=== PATIENT | male | born 1945 | race Caucasian/White ===

== ENCOUNTER 2017-08-22 06:41 | Inpatient (IN) | payer OTHER ==
[~2017-08-22] VITALS: Ht 190.5 cm; Wt 139.3 kg
[~2017-08-22 06:41] MED LIST: AMARYL4 MG PO; ASPIRIN EC81 M1 PO; GLUCOPHAGE500 MG PO; LISINOPRIL10 MG PO; LOSARTAN POTASSIUM; LOVASTATIN 20 M20 MG PO; MEDROLDOSEPACK PO; MOBIC15 MG PO; MULTIVITAMINS PO; NAPROSYN500 MG PO; PIOGLITAZONE15 MG PO; SKELAXIN 800 M800 M1 PO
[2017-08-22 06:47] VITALS: BP 140/104
[2017-08-22 07:16] LABS: HEMATOCRIT 38.2 % (42.0-52.0); HEMOGLOBIN 13.1 gm/dL (14.0-18.0); MCH 31.6 pg (26.0-34.0); MCHC 34.4 g/dL (28.0-37.0); MCV 91.8 fL (80.0-100.0); MPV 8.5 fl. (7.2-11.1); NUCLEATED RBCS 0 /100WBC; PLATELET COUNT* 335 thou/uL (150-400); RBC 4.16 mil/uL (4.50-6.00); RDW-CV 14.5 % (10.5-14.5); WBC 17.8 thou/uL (4.0-11.0)
[2017-08-22 07:22] LABS: ANION GAP 10 mmol/L (7-16); BUN 24 mg/dL (7-18); CALCIUM 8.7 mg/dL (8.5-10.1); CHLORIDE 97 mmol/L (98-107); CO2 27 mmol/L (21-32); CREATININE 1.6 mg/dL (0.6-1.3); GLUCOSE 188 mg/dL (70-99); SODIUM 134 mmol/L (136-145)
[2017-08-22 07:29] LABS: ALBUMIN 2.7 g/dL (3.4-5.0); ALKALINE PHOSPHATASE 84 U/L (46-116); LIPASE 219 U/L (73-393); SGOT 30 U/L (15-37); SGPT 35 U/L (30-65); TOTAL BILIRUBIN 0.6 mg/dL (<0.1-1.0); TOTAL PROTEIN 7.8 g/dL (6.4-8.2); TROPONIN-I LEVEL <0.06 ng/mL (<0.06)
[2017-08-22 07:36] LABS: POTASSIUM 3.7 mmol/L (3.5-5.1)
[2017-08-22 07:41] LABS: ABSOLUTE EOSINOPHILS 0.2 thou/uL (0.0-0.7); ABSOLUTE LYMPHOCYTES 1.2 thou/uL (0.8-5.3); ABSOLUTE MONOCYTES 0.9 thou/uL (0.0-1.2); ABSOLUTE NEUTROPHILS 15.5 thou/uL (1.6-8.1)
[2017-08-22 07:42] LABS: PLATELET ESTIMATE ADEQUATE
--- NOTE | 2017-08-22 09:39 | NUR ---
DR. DAVID SPEAKING WITH PT.
--- NOTE | 2017-08-22 10:22 | NUR ---
SURGEON HAD CONSULT WITH PT AND ASKED IF PT WAS TAKING BLOOD THINNERS, PT REPLIED THAT HE DOES NOT. AFTER SURGEON LEFT THE ROOM, THE PT'S LOOKED AT HIS MEDICATION LIST AND SAW THAT THE PT TAKES LOW DOSE ASPIRIN, HOWEVER, HAS NOT TAKEN ANY TODAY.
--- NOTE | 2017-08-22 12:27 | EKG ---
[place] [address] ELECTROCARDIOGRAM REPORT Name: ANDREWS BELCHER Room: [place] [address] ADM IN [facility].#: [id number] Admission: 08/22/17 Attend Phys: Augusto Bolanos, Discharge: Date of : 45 Report #: [id number] THIS REPORT FOR: //name// [facility] ED Test Date: 2017-08-22 Test Time: 07:18:09 Pat Name: ANDREWS BELCHER Department: Room: [facility] Gender: M Test Evaluator: : 1945 Requested By: Matthew Franklin Order Number: [id number] MD: Humberto Canseco Measurements Intervals [place] Rate: 93 P: 30 NE: 210 QRS: -49 QRSD: 111 T: 90 QT: 369 QTc: 459 Interpretive Statements Atrial fibrillation Left ventricular hypertrophy Probable inferior infarct, age indeterminate Anterior infarct, old Lateral leads are also involved No previous ECG available for comparison Electronically Signed On 08-22-2017 12:27:31 SENIOR ORACLE APPLICATIONS DEVELOPER by Humberto Canseco [email or web address] <ELECTRONICALLY SIGNED> By: Humberto Canseco MD, [facility] 08/22/17 1227 7 7 Humberto Canseco MD, [facility] /EPI
--- NOTE | 2017-08-22 12:28 | EKG ---
[place] [address] ELECTROCARDIOGRAM REPORT Name: ANDREWS BELCHER Room: [place] [address] ADM IN .R.#: [id number] Admission: 08/22/17 Attend Phys: Augusto Bolanos, Discharge: Date of : 45 Report #: [id number] THIS REPORT FOR: //name// ED Test Date: 2017-08-22 Test Time: 07:19:12 Pat Name: ANDREWS BELCHER Department: Room: [place] [address] Gender: M Financial Analysis Advisor: : 1945 Requested By: Matthew Franklin Order Number: [id number] Radhames MD: Humberto Canseco Measurements Intervals [place] Rate: 96 P: 13 IN: 202 QRS: -49 QRSD: 113 T: 90 QT: 352 QTc: 445 Interpretive Statements Atrial fibrillation Left anterior fascicular block Left ventricular hypertrophy Anterior infarct, old Nonspecific ST segment elevation, early repolarization No previous ECG available for comparison Electronically Signed On 08-22-2017 12:27:58 CONTACT CENTRE SUPERVISOR by Humberto Canseco [email or web address] <ELECTRONICALLY SIGNED> By: Humberto Canseco MD, [facility] 08/22/17 1227 0719 8 Humberto Canseco MD, [facility] /EPI
[2017-08-22 13:10] VITALS: BP 130/47
[2017-08-22 13:50] VITALS: BP 132/64
[2017-08-22 15:09] LABS: URINE BILIRUBIN NEGATIVE (Negative); URINE BLOOD NEGATIVE (Negative); URINE CLARITY SL CLOUDY; URINE COLOR YELLOW; URINE GLUCOSE-RANDOM NEGATIVE (Negative); URINE KETONES NEGATIVE (Negative); URINE LEUKOCYTES-REFLEX NEGATIVE (Negative); URINE NITRITE-REFLEX NEGATIVE (Negative); URINE PROTEIN TRACE (Negative); URINE SPECIFIC GRAVITY 1.025 (1.005-1.030); URINE UROBILINOGEN 0.2 E.U./dl (0.2-1.0)
[2017-08-22 15:22] VITALS: BP 143/58
[2017-08-22 15:23] LABS: BACTERIA-REFLEX 1-9 Few /HPF (None Seen); CRYSTALS None Seen /LPF (None Seen); HYALINE CASTS 4-10 Moderate /LPF (None Seen); MUCUS None Seen strn/LPF (None Seen); SQUAMOUS 4-10 Moderate /LPF (0-3); URINE RBC None Seen /HPF (0-2); URINE WBC-REFLEX 0-5 Rare /HPF (0-5)
[2017-08-22] MEDS ORDERED: LOSARTAN-HCTZ1 EAC3 PO (17:13)
--- NOTE | 2017-08-22 18:46 | NUR ---
PT ARRIVED TO THE FLOOR AT 1337. PT ORIENTED TO UNIT AND SERVICES. PT VERBALIZED UNDERSTANDING OF ADMISSION PROCEEDURES AND IS A&O X4 CALM AND COOPERATIVE. PT HAS C/O ABD PAIN THAT HAS BEEN EFFECTIVELY CONTROLLED WITH PRN PAIN MEDICATIONS. PT HAS A STEADY GAIT AND REQUIRES MINIMAL ASSISTANCE TO TRNASFER AND SBA FOR AMBULATION. PT TRACING SR-ST ON THE MONITOR WITH OCCASIONAL PVC. PT DENIES ANY C/O CHEST PAIN OR SOA, 2O AT 2L VIA NC. PT SKIN WARM, DRY AND INTACT.
[2017-08-22 20:00] VITALS: BP 136/50
[2017-08-22 23:35] VITALS: BP 132/59
[2017-08-23] VITALS (16 sets, daily range): BP systolic 134–180; BP diastolic 51–111
--- NOTE | 2017-08-23 04:01 | NUR ---
ASSUMED CARE OF PT AT 1930, NURSING ASSESSMENT COMPLETED, VSS, PT AFEBRILE THIS SHIFT. VOICED NO CONCERNS, DENIES PAIN THIS SHIFT, IV FLUIDS INFUSING, HOURLY ROUNDING COMPLETED, PT NPO SINCE MIDNIGHT, CALL LIGHT WITHIN REACH. NO FALLS THIS SHIFT. PT SLOWLY PROGRESSING TOWARDS GOALS.
--- NOTE | 2017-08-23 04:04 | NUR ---
PT TRACING SINUS RHYTHM WITH OCCASIONAL PVCS THIS SHIFT.
[2017-08-23 05:23] LABS: HEMATOCRIT 34.9 % (42.0-52.0); HEMOGLOBIN 11.9 gm/dL (14.0-18.0); MCH 31.4 pg (26.0-34.0); MCV 92.3 fL (80.0-100.0); MPV 8.6 fl. (7.2-11.1); RBC 3.78 mil/uL (4.50-6.00); RDW-CV 14.7 % (10.5-14.5); WBC 15.6 thou/uL (4.0-11.0)
[2017-08-23 05:29] LABS: INR 1.3; PROTIME 12.3 Seconds (9.20-11.50)
[2017-08-23 05:47] LABS: ALBUMIN 2.3 g/dL (3.4-5.0); CALCIUM 8.4 mg/dL (8.5-10.1); CREATININE 1.3 mg/dL (0.6-1.3); MAGNESIUM 1.7 mg/dL (1.8-2.4); POTASSIUM 3.5 mmol/L (3.5-5.1); TOTAL BILIRUBIN 0.6 mg/dL (<0.1-1.0); TOTAL PROTEIN 7.1 g/dL (6.4-8.2)
--- NOTE | 2017-08-23 10:45 | NUR ---
CM ASSESSMENT: Pt is A&O. Resides at home with his , at bedside. Pt is independent with ADLS, normally healthy, this is Pt's first hospitalization. No DME. No hx of HH or SNF. Pt reports plans to have drains placed. Open to HH at dc, if necessary, following for dc needs.
--- NOTE | 2017-08-23 18:30 | NUR ---
RECEIVED REPORT. ASSUMED CARE AT 0730. VSS. O2 SAT 97% ON 2L, TITRATED TO ROOM AIR. PT A&0 X4. ENGINEERING COORDINATOR IN PLACE TRACING SR WITH 1 DEGREE. AM ASSESSMENT AND VITALS COMPLETED CHARTED. IV PATENT AND INFUSING TPN. PT NPO FOR FIRST HALF OF SHIFT FOR PLACEMENT OF DRAIN TO RLQ. DRAIN SUCCESSFULLY PLACED - 700 OF LIGHT BROWN OUTPUT THIS SHIFT. PT HAS REPORTED PAIN IN RLQ THAT HAS BEEN MANAGED WITH PO AND IV PAIN MEDICATION THIS SHIFT. BOWEL SOUNDS HYPOACTIVE. ABDOMEN FIRM BUT PALPABLE. FAMILY AT BEDSIDE THROUGHOUT SHIFT. PT ABLE TO EAT DINNER THIS EVENING WITHOUT ISSUE. POST PROCEDURE VITALS CHARTED. PT REPOSITIONING SELF IN THE BED FREQUENTLY. EDUCATION GIVEN TO REPORT PAIN PROMPTLY FOR PAIN MANAGEMENT. PT COMMUNICATES UNDERSTANDING. PT PROGRESSING TOWARD GOALS. CALL LIGHT IS WITHIN REACH. LOW RISK FALL PRECAUTIONS ARE IN PLACE. HOURLY ROUNDING COMPLETED.
[2017-08-24] VITALS: BP 146/50
--- NOTE | 2017-08-24 00:34 | NUR ---
PATIENT RESTING MOST OF NIGHT WITHOUT COMPLAINTS OF PAIN. HAS ABD DRAIN WITH 100CC OUT THUS FAR. ASSISTED TO TOILET WITH SLOW STEADY GAIT. CONT. PROCALAMINE AT 125 PER HOUR. cONT. ABS WITHOUT ADVERSE REACTION NOTED. BED IN LOW POSITION, CALL LIGHT IN REACH. BED ALARM ON. CONT. WITH CURRENT PLAN OF CARE AT THIS TIME.
[2017-08-24 04:00] VITALS: BP 157/73
[2017-08-24 05:07] LABS: ABSOLUTE EOSINOPHILS 0.1 thou/uL (0.0-0.7); ABSOLUTE LYMPHOCYTES 1.6 thou/uL (0.8-5.3); ABSOLUTE MONOCYTES 0.7 thou/uL (0.0-1.2); ABSOLUTE NEUTROPHILS 10.3 thou/uL (1.6-8.1); BASOPHILS 0.2 %; EOSINOPHILS 0.9 %; HEMATOCRIT 33.6 % (42.0-52.0); HEMOGLOBIN 11.4 gm/dL (14.0-18.0); LYMPHOCYTES 12.5 %; MCH 31.2 pg (26.0-34.0); MCHC 33.9 g/dL (28.0-37.0); MONOCYTES 5.7 %; MPV 8.6 fl. (7.2-11.1); NUCLEATED RBCS 0 /100WBC; PLATELET COUNT* 300 thou/uL (150-400); POLYS 80.7 %; RBC 3.65 mil/uL (4.50-6.00); RDW-CV 14.8 % (10.5-14.5); WBC 12.8 thou/uL (4.0-11.0)
[2017-08-24 06:12] LABS: CALCIUM 8.2 mg/dL (8.5-10.1); CREATININE 0.9 mg/dL (0.6-1.3); MAGNESIUM 1.8 mg/dL (1.8-2.4); PHOSPHORUS* 2.4 mg/dL (2.5-4.9); POTASSIUM 3.8 mmol/L (3.5-5.1)
[2017-08-24 07:30] VITALS: BP 141/65
[2017-08-24 11:37] VITALS: BP 120/54
--- NOTE | 2017-08-24 13:15 | NUR ---
VSS, ASSUMED CARE IN THE AM, ASSESSMENT PERFORMED AND CHARTED, FALL PRECAUTIONS IN PLACE AND CALL LIGHT IN REACH, PT IS UP WITH STAND BY, ON RA AND NUBIAF SR WITH 1D BLK ON THE MONITOR, PT STATES PAIN IN RLQ, PT HAD JASKSON PRAT IN PLACE AND IS DRAINING WITH LIGHT BROWN OUT PUT,PT ABDOMEN IS ROUND, DISTENTED AND ROMI SOFT, ACTIVE BOWEL SOUNDS NOTED, PT GOA IS TO WALK THE UNIT AND SIT UP IN CHAIR FOR MEALS, WILL FOLLOW WITH PLAN OF CARE.
[2017-08-24 15:38] VITALS: BP 179/92
--- NOTE | 2017-08-24 18:20 | NUR ---
VSS, PT IS PROGRESS TOWARDS GOAL, PT HAS WALKED UNIT AND IS TRACING SR WITH 1D BLK ON THE MONITOR, PT IS UP AD AUDRA AND STATES PAIN IN HIS RLQ. MEME PRATTE DRAIN IS IN PLACE AND IS DRAINING, ANITHA, PT HAS BEEN UP IN [facility] FOR MEALS AND HOURLY ROUNDS COMPLETED, WILL FOLLOW WITH SHIFT REPORT.
[2017-08-24 20:00] VITALS: BP 175/74
[2017-08-25] VITALS: BP 176/77
--- NOTE | 2017-08-25 00:56 | NUR ---
RESTIN IN BED. UP WITH ASSIST. DRAIN TO RLQ WITH BROWN DRAINAGE. NO FURTHER COMPLAINTS OF PAIN AFTER ADM PAIN MEDS. NO SIGN OF DISTRESS, CONT. WITH PLAN OF CARE. BED IN LOW POSITION, CALL LIGHT IN REACH.
--- NOTE | 2017-08-25 03:10 | NUR ---
LAB CALL POSITIVE BLOOD CULTURE RESULTS TO THIS NURSE. PAGE OUT TO DR CANALES THAT GRAM POSITIVE COCCI GREW FROM BL CULT. PHARMACY NOTIFIED AND STATES [facility] WHICH PATIENT IS ALREADY RECEIVING COVERS THIS.
[2017-08-25 04:00] VITALS: BP 152/64
[2017-08-25 05:13] LABS: HEMATOCRIT 34.7 % (42.0-52.0); HEMOGLOBIN 11.8 gm/dL (14.0-18.0); MCH 31.3 pg (26.0-34.0); MCV 92.2 fL (80.0-100.0); MPV 8.9 fl. (7.2-11.1); RBC 3.76 mil/uL (4.50-6.00); WBC 7.7 thou/uL (4.0-11.0)
[2017-08-25 05:39] LABS: CALCIUM 8.1 mg/dL (8.5-10.1); MAGNESIUM 1.5 mg/dL (1.8-2.4); POTASSIUM 3.9 mmol/L (3.5-5.1)
[2017-08-25 08:00] VITALS: BP 167/88
--- NOTE | 2017-08-25 10:41 | NUR ---
ASSUMED CARE OF PT AT 0730. PT CONTINUES TO BE A&O X4, CALM AND COOPERATIVE. PT C/O ABD PAIN IN RLQ WHERE DRAIN IS. PO PAIN MEDICATION ADMINISTERED AND MINIMALL RELIEFE REPORTED BUT PT DENIED THE NEED FOR FURTHER PHARMACOLOGICAL INTERVENTIOMS AFTER BEING OFFERED ALTERNATE MEDICATION. PT HAS BEEN AMBULATING IN THE HALLS WIT [facility]. PT HAS A STEADY GAIT, AND HAS BEEN UP TO THE RESTROOM SEVERAL TIMES THIS MORNING. NURSING WILL OCNTINUE TO MONITOR.
[2017-08-25] MEDS ORDERED: HYDROCODON-ACE1 EAC7 PO (11:20)
[2017-08-25 12:00] VITALS: BP 185/89
[2017-08-25] MEDS ORDERED: AUGMENTIN 875-1 EACH PO (14:23)
[2017-08-25 14:24] VITALS: BP 185/89
--- NOTE | 2017-08-25 16:26 | NUR ---
PT DISCHARGED HOME. PT AND VERBALIZED UNDERSTANDING OF DC INSTRUCTIONS THAT INCLUDED MEDICATION TEACHING, F/U CARE, DRAIN CARE, AND ACTIVITY/DIET RECOMENDATIONS. PT TOOK ALL PERSONAL BELONGINGS WELL ALL PRESCRIPTIONS AT TIME OF DISCHARGE. IV AND COIN DEALER REMOVED PRIOR TO DISCHARGE.
== END 2017-08-25 16:00 | disposition home or self-care (01) | DRG 871 ==
LOC: M.ERS 06:41 → M.2W 08:37 → M.TBA-ER 08:37 → M.2W 13:21
PROVIDERS: Emergency Medicine Emergency Medical Services; Radiology Diagnostic Radiology; Surgery; ADMIT Family Medicine
PROC: 0T2BX0Z Change Drainage Device in Bladder, External Approach (ICD-10-PCS; principal; 2017-08-23)
PROC: 0W9G3ZZ Drainage of Peritoneal Cavity, Percutaneous Approach (ICD-10-PCS; 2017-08-23)
DX: A41.9 Sepsis, unspecified organism (principal); K35.3 Acute appendicitis with localized peritonitis; N17.9 Acute kidney failure, unspecified; N31.9 Neuromuscular dysfunction of bladder, unspecified; I10 Essential (primary) hypertension; Z98.42 Cataract extraction status, left eye; Z98.41 Cataract extraction status, right eye; Z83.3 Family history of diabetes mellitus; Z79.82 Long term (current) use of aspirin; Z79.899 Other long term (current) drug therapy

== ENCOUNTER → 2017-09-01 | Outpatient (CLI) | payer OTHER ==
[~2017-09-01] MED LIST changes: +AUGMENTIN 875-1 EACH PO; +HYDROCODON-ACE1 EAC7 PO; +LOSARTAN-HCTZ1 EAC3 PO
== END ==
LOC: M.CT 09:56
DX: N20.0 Calculus of kidney (principal); K76.0 Fatty (change of) liver, not elsewhere classified; K35.3 Acute appendicitis with localized peritonitis

== ENCOUNTER → 2017-09-06 | Outpatient (CLI) | payer OTHER ==
[~2017-09-06] VITALS: Ht 188 cm; Wt 136.1 kg
[2017-09-06 09:27] VITALS: BP 130/64
--- NOTE | 2017-09-06 14:07 | NUR ---
late entry: Discharge instructions reviewed with the patient and his . Dr. Phillip wanted patient to flush the drainage tube with 5ml sodium chloride daily and when it looks like its clogged. Instructed patient's on how to flush drain properly. return demonstrated proper technique and answered all questions properly. Patient also taught how to change dressing if soiled. All instructions understood by patient and family member
== END | disposition home or self-care (01) ==
LOC: M.INT 08:59
DX: T81.89XA Other complications of procedures, not elsewhere classified, initial encounter (principal); K35.2 Acute appendicitis with generalized peritonitis; I10 Essential (primary) hypertension; Z98.41 Cataract extraction status, right eye; Z98.42 Cataract extraction status, left eye; Z79.899 Other long term (current) drug therapy; Z79.82 Long term (current) use of aspirin; Z79.891 Long term (current) use of opiate analgesic; Y83.8 Other surgical procedures as the cause of abnormal reaction of the patient, or of later complication, without mention of misadventure at the time of the procedure

== ENCOUNTER → 2017-09-09 | Outpatient (CLI) | payer OTHER | LOC: M.CT 10:43 | DX: I71.4 Abdominal aortic aneurysm, without rupture (principal); K36 Other appendicitis ==

== ENCOUNTER → 2017-11-02 | Day surgery (SDC) | payer OTHER ==
[2017-11-02 13:49] LABS: HEMATOCRIT 40.5 % (42.0-52.0); HEMOGLOBIN 14.2 gm/dL (14.0-18.0); MCH 33.1 pg (26.0-34.0); MCHC 34.9 g/dL (28.0-37.0); MCV 94.7 fL (80.0-100.0); MPV 9.6 fl. (7.2-11.1); RBC 4.28 mil/uL (4.50-6.00); RDW-CV 13.9 % (10.5-14.5); WBC 7.1 thou/uL (4.0-11.0)
[2017-11-02 14:02] LABS: CALCIUM 9.2 mg/dL (8.5-10.1); POTASSIUM 3.7 mmol/L (3.5-5.1)
[2017-11-02 14:07] LABS: ALBUMIN 3.6 g/dL (3.4-5.0); TOTAL BILIRUBIN 0.6 mg/dL (<0.1-1.0); TOTAL PROTEIN 7.1 g/dL (6.4-8.2)
--- NOTE | 2017-11-12 22:20 | OP ---
[address] [address] OPERATIVE REPORT Name: ANDREWS BELCHER Room: [facility]#: [id number] Admission: 11/02/17 Attend Phys: Hodan Villegas MD Discharge: Date of : 45 Report #: [id number] THIS REPORT FOR: //name// [facility] DICTATED BY: Tessa Giraldo DO DATE OF SERVICE: 11/02/2017 PREOPERATIVE DIAGNOSIS: History of perforated appendicitis. POSTOPERATIVE DIAGNOSIS: History of perforated appendicitis. SURGEON: Tessa Giraldo DO pgy5. SUPERVISING SURGEON: Dr. Hodan Villegas. SKATING RINK MANAGER: Jude Viera, PGY-1. PROCEDURE: Laparoscopic appendectomy. ANESTHESIA: General endotracheal. ESTIMATED BLOOD LOSS: 5 mL. SPECIMENS: Appendix. COMPLICATIONS: None. DISPOSITION: To the PACU to home. OPERATIVE DETAILS: After obtaining proper informed consent, the patient was brought to the operating room and laid supine on the operating table. He was given preoperative antibiotics and sedated and intubated under the benefit of general anesthesia. Abdomen was then prepped and draped in the usual sterile fashion. A timeout was performed. Supraumbilical incision was made. Dissection of subcutaneous tissue was carried out with blunt dissection to the level of the fascia. A nicking incision was made in the fascia with the use of cautery and grasped with two Ronni clamps and elevated. Fascial incision was extended superiorly and inferiorly and peritoneum was entered bluntly with a finger. Peritoneum was swept and found to be free of adhesions. 0 Vicryl sutures were placed on either side of the fascia, and Lan trocar was placed in the abdomen, and abdomen was insufflated. The patient was placed head down and rolled to the left. There were some adhesions in the right lower quadrant. 5 mm trocar was placed in the left lower quadrant [place] [address] OPERATIVE REPORT Name: ANDREWS BELCHER Room: [facility]#: [id number] Admission: 11/02/17 Attend Phys: Hodan Villegas MD Discharge: Date of : 45 Report #: [id number] under direct visualization. We then turned our attention back to the right lower quadrant. Adhesions were gently swept down away from the abdominal wall. There was a loop of sigmoid colon that was adherent to the right lower quadrant. This was gently swept away. Small bowel was swept up towards the head, and appendix was identified, and this was grasped and elevated and mesoappendix was clearly clamped and ligated with the use of Harmonic scalpel. Base of the appendix was ligated with a 45 mm blue load Endo-YEISON stapler. Appendix was placed in an EndoCatch bag. Cecum was quite tightly adherent to the right lateral abdominal wall, and these adhesions were not taken down. Right lower quadrant was irrigated, and staple line was hemostatic. The patient was placed level, and abdomen was desufflated, and trocars were removed under direct visualization with no evidence of bleeding. Appendix was brought out through supraumbilical incision and sent to pathology for further evaluation. A mskzzo-fp-ecyxl 0 Vicryl suture was placed in the fascia of the supraumbilical incision with good approximation. Local infiltration of 0.5% Marcaine was injected around all incisions, totalling 20 mL, and skin was closed with 4-0 Monocryl followed by Dermabond. All counts were correct at the end of the case. Drapes were removed, and the patient was awoken and extubated and brought to PACU in good condition for further recovery. Dr. Hodan Villegas was present and scrubbed for the entire procedure. <ELECTRONICALLY SIGNED> By: Hodan Villegas MD 11/12/17 2220 1520 1728Darckendall Villegas MD /nt
--- NOTE | 2018-03-08 15:20 | PATH ---
[facility] [address] [place] [address] PATHOLOGY RPT PROCEDURE Name: OMEGA BELCHER Room: [facility].#: [id number] Admission: 11/02/17 Date of : 45 Discharge: Report #: [id number] Path Case #: [id number] [facility] Accession Number: [id number] . 01 Material submitted: . APPENDIX . 01 Clinical history: . Appendiceal abscess . 02 Diagnosis: Appendix: - Chronic and mild acute appendicitis with fibrofatty obliteration of distal lumen and prominent mucocele with mucus extravasation into periappendiceal tissue/mesoappendix in association with foreign body type granulomatous response, negative for malignancy. See comment. (WOLF:blanca; 11/08/2017) QMS/11/08/2017 . 02 Comment: Prominent mucus extravasation in association with a mucocele is noted at the base of the appendix without neoplasm identified. Prominent granulomatous response is seen in association with the mucus extravasation and focally, birefringement foreign material is also seen within a granuloma consistent with remote prior perforation. (WOLF/db; 11/08/17) . . . 02 Electronically signed: . Tino Cervantes MD, Pathologist NPI- [id number] . 01 Gross description: . The specimen is received in formalin, labeled "Omega Belcher, marco". Received is a vermiform appendix measuring 7.7 cm in length by up to 1.2 cm in diameter with a large amount of attached mesoappendix. The serosal surface is pink-bruner in appearance with a moderate amount of overlying adhesions. The surgical margin is inked. Sectioning reveals a pinpoint to dilated lumen filled with clear mucoid material. The specimen is submitted representatively in cassettes A1 and A2, with the proximal margin and bisected tip submitted in cassette A1. (CAA; 11/03/2017) . Upon initial microscopic examination, the remainder of the specimen is submitted as follows: . A3: Proximal appendix along tapered staple line, with staple line removed, new margin inked black [place] [address] PATHOLOGY RPT PROCEDURE Name: YEOMEGA Room: [facility].#: [id number] Admission: 11/02/17 Date of : 45 Discharge: Report #: [id number] Path Case #: [id number] A4-A9: Remainder of appendix, submitted proximal to distal A10-A28: Mesoappendix . A gross photograph is taken. ([facility]; 11/04/2017) QAC/QAC . 02 Pathologist provided ICD-10: K35.80, K36 . 02 CPT . 869365 Specimen Comment: A duplicate report has been generated due to demographic updates. Performed at: [address], [place], [place] [id number] MD Alfonso Vernon MD Phone: [phone] Performed at: 02 [facility] [address], [place], [place] [id number] MD Tino Cervantes MD Phone: [phone]
== END | disposition home or self-care (01) ==
LOC: M.SUR 08:04
PROVIDERS: Surgery
DX: Z87.19 Personal history of other diseases of the digestive system (principal); I10 Essential (primary) hypertension; E11.9 Type 2 diabetes mellitus without complications; E78.5 Hyperlipidemia, unspecified; Z79.891 Long term (current) use of opiate analgesic; Z79.82 Long term (current) use of aspirin; Z79.899 Other long term (current) drug therapy; Z98.49 Cataract extraction status, unspecified eye

== ENCOUNTER → 2018-02-11 | Outpatient (CLI) | payer OTHER | LOC: M.LAB 03:33 | DX: Z01.812 Encounter for preprocedural laboratory examination (principal); I10 Essential (primary) hypertension ==

== ENCOUNTER → 2018-04-22 | Outpatient (CLI) | payer OTHER ==
[2018-04-22 08:12] LABS: POTASSIUM 3.5 mmol/L (3.5-5.1)
== END ==
LOC: M.LAB 03:41
PROVIDERS: Anesthesiology
DX: Z01.812 Encounter for preprocedural laboratory examination (principal); E11.9 Type 2 diabetes mellitus without complications

== ENCOUNTER → 2019-05-05 | Outpatient (CLI) | payer OTHER | LOC: M.ULTRA 05-03 13:19 | DX: G45.9 Transient cerebral ischemic attack, unspecified (principal); I71.4 Abdominal aortic aneurysm, without rupture ==

== ENCOUNTER → 2019-05-17 | Outpatient (CLI) | payer OTHER | LOC: M.CT 05-15 07:30 | DX: I71.4 Abdominal aortic aneurysm, without rupture (principal); K80.80 Other cholelithiasis without obstruction; M47.816 Spondylosis without myelopathy or radiculopathy, lumbar region; N20.0 Calculus of kidney; J98.11 Atelectasis ==

== ENCOUNTER 2019-08-14 12:44 | Inpatient (IN) | payer OTHER ==
[~2019-08-14] VITALS: Ht 188 cm; Wt 148.8 kg
[2019-08-14 12:52] VITALS: BP 181/92
[2019-08-14 13:19] LABS: URINE BILIRUBIN NEGATIVE (Negative); URINE BLOOD 2+ (Negative); URINE CLARITY CLEAR; URINE COLOR YELLOW; URINE GLUCOSE-RANDOM 1+ (Negative); URINE KETONES TRACE (Negative); URINE LEUKOCYTES-REFLEX TRACE (Negative); URINE NITRITE-REFLEX NEGATIVE (Negative); URINE PROTEIN 2+ (Negative); URINE SPECIFIC GRAVITY >= 1.030 (1.005-1.030)
[2019-08-14 13:35] LABS: CASTS None Seen /LPF (None Seen); CRYSTALS None Seen /LPF (None Seen); SQUAMOUS 0-3 Few /LPF (0-3); URINE RBC 0-2 Rare /HPF (0-2); URINE WBC-REFLEX 6-15 Few /HPF (0-5)
[2019-08-14 14:17] LABS: HEMATOCRIT 41.2 % (42.0-52.0); HEMOGLOBIN 14.3 gm/dL (14.0-18.0); MCH 32.7 pg (26.0-34.0); MCHC 34.8 g/dL (28.0-37.0); MCV 94.1 fL (80.0-100.0); NUCLEATED RBCS 0 /100WBC; PLATELET COUNT* 161 thou/uL (150-400); RBC 4.37 mil/uL (4.50-6.00); RDW-CV 13.3 % (10.5-14.5); WBC 14.5 thou/uL (4.0-11.0)
[2019-08-14 14:20] LABS: CALCIUM 9.3 mg/dL (8.5-10.1); CREATININE 1.4 mg/dL (0.6-1.3); POTASSIUM 3.3 mmol/L (3.5-5.1)
[2019-08-14 14:25] LABS: ALBUMIN 3.6 g/dL (3.4-5.0); TOTAL PROTEIN 7.2 g/dL (6.4-8.2)
--- NOTE | 2019-08-14 15:37 | EKG ---
[place] [address] ELECTROCARDIOGRAM REPORT Name: ANDREWS BELCHER Room: [place] [address] ADM IN [facility].#: [id number] Admission: 08/14/19 Attend Phys: Sharan Ambrose Discharge: Date of : 45 Date of Service: 08/14/19 1336 Report #: [id number] THIS REPORT FOR: //name// [facility] ED Test Date: 2019-08-14 Test Time: 13:36:29 Pat Name: ANDREWS BELCHER Department: Room: [facility] Gender: M Food Editor: HETAL : 1945 Requested By: Linda Soriano Order Number: [id number] MD: Ramy Loera Measurements Intervals [place] Rate: 103 P: 202 NC: 161 QRS: -57 QRSD: 130 T: 132 QT: 367 QTc: 481 Interpretive Statements Sinus or ectopic atrial tachycardia IVCD, consider atypical RBBB LVH with IVCD and secondary repol abnrm Inferior infarct Anterior ST elevation, probably due to LVH Lateral leads are also involved Compared to ECG 08/22/2017 07:19:12 Intraventricular conduction delay now present Myocardial infarct finding still present ST (T wave) deviation still present Electronically Signed On 08-14-2019 15:36:40 SPARES SCHEDULER by Ramy Loera [email or web address] <ELECTRONICALLY SIGNED> By: Ramy Loera MD, [facility] 08/14/19 1536 1336 1336 Ramy Loera MD, [facility] /EPI
[2019-08-14 15:47] LABS: ABSOLUTE LYMPHOCYTES 0.6 thou/uL (0.8-5.3); ABSOLUTE MONOCYTES 0.9 thou/uL (0.0-1.2); ABSOLUTE NEUTROPHILS 13.1 thou/uL (1.6-8.1); PLATELET ESTIMATE ADEQUATE
[2019-08-14 18:46] VITALS: BP 140/54
[2019-08-14 20:25] VITALS: BP 140/54
[2019-08-14 20:30] VITALS: BP 163/65
[2019-08-15] VITALS: BP 164/79
[2019-08-15 01:09] LABS: ABSOLUTE BASOPHILS 0.1 thou/uL (0.0-0.2); ABSOLUTE LYMPHOCYTES 1.2 thou/uL (0.8-5.3); ABSOLUTE MONOCYTES 1.3 thou/uL (0.0-1.2); ABSOLUTE NEUTROPHILS 13.7 thou/uL (1.6-8.1); BASOPHILS 0.3 %; HEMATOCRIT 39.1 % (42.0-52.0); HEMOGLOBIN 13.5 gm/dL (14.0-18.0); LYMPHOCYTES 7.6 %; MCH 32.7 pg (26.0-34.0); MCHC 34.5 g/dL (28.0-37.0); MCV 94.6 fL (80.0-100.0); MONOCYTES 7.8 %; MPV 9.7 fl. (7.2-11.1); NUCLEATED RBCS 0 /100WBC; PLATELET COUNT* 147 thou/uL (150-400); POLYS 84.3 %; RBC 4.13 mil/uL (4.50-6.00); RDW-CV 13.7 % (10.5-14.5); WBC 16.2 thou/uL (4.0-11.0)
[2019-08-15 01:18] LABS: ALBUMIN 3.3 g/dL (3.4-5.0); CALCIUM 8.6 mg/dL (8.5-10.1); CREATININE 1.2 mg/dL (0.6-1.3); POTASSIUM 3.2 mmol/L (3.5-5.1); TOTAL BILIRUBIN 0.8 mg/dL (<0.1-1.0)
[2019-08-15 04:00] VITALS: BP 194/81
[2019-08-15 09:40] VITALS: BP 143/66
[2019-08-15 11:32] VITALS: BP 128/84
[2019-08-15 14:19] LABS: URINE BILIRUBIN NEGATIVE (Negative); URINE BLOOD 1+ (Negative); URINE CLARITY CLEAR; URINE COLOR YELLOW; URINE GLUCOSE-RANDOM 1+ (Negative); URINE KETONES NEGATIVE (Negative); URINE LEUKOCYTES-REFLEX NEGATIVE (Negative); URINE NITRITE-REFLEX NEGATIVE (Negative); URINE PROTEIN 2+ (Negative); URINE SPECIFIC GRAVITY 1.025 (1.005-1.030)
[2019-08-15 14:25] LABS: SQUAMOUS 4-10 Moderate /LPF (0-3)
[2019-08-15 14:26] LABS: BACTERIA-REFLEX >30 Many /HPF (None Seen); URINE WBC-REFLEX 0-5 Rare /HPF (0-5)
[2019-08-15 14:27] LABS: CASTS None Seen /LPF (None Seen); CRYSTALS None Seen /LPF (None Seen); MUCUS None Seen strn/LPF (None Seen); URINE RBC >20 Many /HPF (0-2)
[2019-08-15 16:22] VITALS: BP 155/68
[2019-08-15 20:00] VITALS: BP 155/77
[2019-08-16 00:32] VITALS: BP 180/85
[2019-08-16 03:39] LABS: ABSOLUTE EOSINOPHILS 0.1 thou/uL (0.0-0.7); ABSOLUTE LYMPHOCYTES 0.8 thou/uL (0.8-5.3); ABSOLUTE MONOCYTES 0.5 thou/uL (0.0-1.2); BASOPHILS 0.3 %; EOSINOPHILS 0.6 %; HEMATOCRIT 37.4 % (42.0-52.0); HEMOGLOBIN 13.4 gm/dL (14.0-18.0); LYMPHOCYTES 7.7 %; MCH 33.5 pg (26.0-34.0); MCHC 35.8 g/dL (28.0-37.0); MCV 93.6 fL (80.0-100.0); MPV 10.1 fl. (7.2-11.1); NUCLEATED RBCS 0 /100WBC; PLATELET COUNT* 143 thou/uL (150-400); POLYS 86.4 %; RBC 3.99 mil/uL (4.50-6.00); RDW-CV 13.4 % (10.5-14.5); WBC 10.4 thou/uL (4.0-11.0)
[2019-08-16 03:51] LABS: CALCIUM 8.6 mg/dL (8.5-10.1); POTASSIUM 3.6 mmol/L (3.5-5.1); TOTAL BILIRUBIN 0.5 mg/dL (<0.1-1.0); TOTAL PROTEIN 7.2 g/dL (6.4-8.2)
[2019-08-16 04:17] VITALS: BP 186/93
[2019-08-16 08:08] VITALS: BP 176/103
[2019-08-16 16:00] VITALS: BP 147/64
[2019-08-16 21:00] VITALS: BP 210/81
[2019-08-17] VITALS: BP 195/92
[2019-08-17 00:18] VITALS: BP 163/94
[2019-08-17 04:00] VITALS: BP 152/81
[2019-08-17 05:05] LABS: ABSOLUTE LYMPHOCYTES 0.9 thou/uL (0.8-5.3); ABSOLUTE MONOCYTES 0.6 thou/uL (0.0-1.2); ABSOLUTE NEUTROPHILS 5.3 thou/uL (1.6-8.1); BASOPHILS 0.3 %; EOSINOPHILS 0.4 %; HEMATOCRIT 36.4 % (42.0-52.0); HEMOGLOBIN 12.9 gm/dL (14.0-18.0); LYMPHOCYTES 12.5 %; MCH 33.2 pg (26.0-34.0); MCHC 35.4 g/dL (28.0-37.0); MCV 93.9 fL (80.0-100.0); MONOCYTES 8.9 %; MPV 10.1 fl. (7.2-11.1); NUCLEATED RBCS 0 /100WBC; PLATELET COUNT* 161 thou/uL (150-400); POLYS 77.9 %; RBC 3.88 mil/uL (4.50-6.00); RDW-CV 13.4 % (10.5-14.5); WBC 6.8 thou/uL (4.0-11.0)
[2019-08-17 05:15] LABS: ALBUMIN 2.7 g/dL (3.4-5.0); CALCIUM 8.7 mg/dL (8.5-10.1); CREATININE 0.9 mg/dL (0.6-1.3); POTASSIUM 3.4 mmol/L (3.5-5.1); TOTAL BILIRUBIN 0.5 mg/dL (<0.1-1.0); TOTAL PROTEIN 6.9 g/dL (6.4-8.2)
[2019-08-17 07:21] VITALS: BP 152/81
[2019-08-17] MEDS ORDERED: KEFLEX500 M2 PO (07:25)
[2019-08-17 08:00] VITALS: BP 134/81
[2019-08-17 12:39] VITALS: BP 152/81
== END 2019-08-17 13:12 | disposition home or self-care (01) | DRG 871 ==
LOC: M.ERS 12:44 → M.2W 14:53 → M.TBA-ER 14:53 → M.2W 20:25
PROVIDERS: Nurse Practitioner Family; ADMIT Internal Medicine
DX: A41.9 Sepsis, unspecified organism (principal); G93.41 Metabolic encephalopathy; N30.01 Acute cystitis with hematuria; N17.9 Acute kidney failure, unspecified; Z68.41 Body mass index [BMI] 40.0-44.9, adult; R65.20 Severe sepsis without septic shock; E78.5 Hyperlipidemia, unspecified; I25.10 Atherosclerotic heart disease of native coronary artery without angina pectoris; E11.9 Type 2 diabetes mellitus without complications; E66.9 Obesity, unspecified; I10 Essential (primary) hypertension; Z98.42 Cataract extraction status, left eye; Z98.41 Cataract extraction status, right eye; Z79.84 Long term (current) use of oral hypoglycemic drugs; Z79.82 Long term (current) use of aspirin; Z79.899 Other long term (current) drug therapy; Z90.49 Acquired absence of other specified parts of digestive tract; Z87.891 Personal history of nicotine dependence; Z82.49 Family history of ischemic heart disease and other diseases of the circulatory system; Z80.42 Family history of malignant neoplasm of prostate; Z79.2 Long term (current) use of antibiotics; Z79.4 Long term (current) use of insulin